=== PATIENT | female | born 1975 | race Caucasian/White ===

== ENCOUNTER 2017-04-11 23:40 | Emergency (ER) | payer BC ==
[2017-04-12 00:03] VITALS: BP 135/59
--- NOTE | 2017-04-12 00:23 | EDM.PDOC ---
[id number] Complaint: POSSIBLE BROKED RIGHT ANKLE Time Seen by Provider: 04/12/17 00:05 Source of Information: Reports: Patient, Family History Limitations: Reports: No Limitations - History of Present Illness INITIAL COMMENTS - FREE TEXT/NARRATIVE: 41-year-old female injured her right ankle when she stumbled down a few stairs tonight. She has significant swelling of the lateral right ankle with pain with weightbearing. No other injury. 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: - Past Surgical History GI Surgical History: Reports: Bariatric Procedure Musculoskeletal Surgical History: Reports: Arthroscopic Knee Social & Family History - Tobacco Use Smoking Status *Q: Light Tobacco Smoker Years of Tobacco use: 10 Packs/Tins Daily: 0.5 - Caffeine Use Caffeine Use: Reports: Coffee, Energy Drinks, Soda - Recreational Drug Use Recreational Drug Use: No Review of Systems - Review of Systems Review Of Systems: See Below Constitutional: Denies: Fever Respiratory: Denies: Shortness of Breath Cardiovascular: Denies: Chest Pain GI/Abdominal: Denies: Abdominal Pain, Nausea, Vomiting Musculoskeletal: Reports: Other (Chronic left knee pain) Skin: Reports: Bruising (Slight bruising is developing over the injured ankle) Psychiatric: Reports: No Symptoms ED EXAM, GENERAL - Physical Exam Exam: See Below Exam Limited By: No Limitations General Appearance: Alert, No Apparent Distress (Appears uncomfortable but not distressed) Respiratory/Chest: No Respiratory Distress Extremities: Other (Exam is otherwise limited to the right lower extremity. She has fairly tense swelling over the right lateral malleolus and is very tender to palpation. She also has moderate palpation tenderness over the medial malleolus but no crepitus or swelling) Course - Vital Signs Last Recorded V/S: Last Vital Signs Temp 96.7 F 04/12/17 00:03 Pulse 86 04/12/17 00:03 Resp 16 04/12/17 00:03 BP 135/59 L 04/12/17 00:03 Pulse Ox 98 04/12/17 00:03 - Orders/Labs/Meds Orders: Active Orders 24 hr Category Date Time Status Ankle Min 3V Rt [CR] Stat Exams 04/12/17 00:07 Taken DME for Discharge [COMM] Stat Oth 04/12/17 00:35 Ordered - Re-Assessments/Exams Free Text/Narrative Re-Assessment/Exam: 04/12/17 00:22 An x-ray of the right ankle was obtained. 04/12/17 00:36 X-ray was negative. A three-inch Gunner wrap was applied to the ankle and the agent was provided with crutches. They are going to mushroom picker some anti- inflammatories for pain, she'll elevate the foot and increase activity as tolerated. Departure - Departure Time of Disposition: 00:51 Disposition: Home, Self-Care 01 Condition: Good Clinical Impression: Right ankle sprain Qualifiers: Encounter type: initial encounter Involved ligament of ankle: other ligament Qualified Code(s): S93.491A - Sprain of other ligament of right ankle, initial encounter - Discharge Information Instructions: Ankle Sprain, [id number] Referrals: PCP,None [Primary Care Provider] - Forms: ED Department Discharge Care Plan Goals: Wrap foot for support, elevate and ice when able. Ibuprofen or naproxen should help and use crutches until able to bear weight without significant pain. Increase activity as tolerated, and recheck in 7-10 days if not improving satisfactorily. - My Orders Last 24 Hours: My Active Orders 04/12/17 00:07 Ankle Min 3V Rt [CR] Stat 04/12/17 00:35 DME for Discharge [COMM] Stat - Assessment/Plan Last 24 Hours: My Active Orders 04/12/17 00:07 Ankle Min 3V Rt [CR] Stat 04/12/17 00:35 DME for Discharge [COMM] Stat
--- NOTE | 2017-04-12 09:14 | CR ---
Ankle Min 3V Rt HISTORY: Injury COMPARISON: None FINDINGS: No fracture or dislocation. No bony destructive process seen.
== END 2017-04-12 00:51 | disposition home or self-care (01) ==
LOC: JP.ED 23:40
DX: S93.491A Sprain of other ligament of right ankle, initial encounter (principal); F17.210 Nicotine dependence, cigarettes, uncomplicated; Z98.84 Bariatric surgery status; Z88.8 Allergy status to other drugs, medicaments and biological substances; W10.9XXA Fall (on) (from) unspecified stairs and steps, initial encounter
CPT/HCPCS: 73610-26-RT; 73610-RT; 99284